=== PATIENT | male | born 1935 | race Caucasian/White ===

== ENCOUNTER 2016-12-24 09:09 | Emergency (ER) | payer MEDICARE ==
[2016-12-24] MEDS ORDERED: cefTRIAXone VIAL(*) 1,000 MG VIAL IVPB ONE (10:05)
[2016-12-24 11:13] VITALS: BP 113/58
--- NOTE | 2016-12-24 11:37 | UC ---
Lower Extremity/Ankle HPI - HPI Summary HPI Summary: right foot swelling and redness for about 7 days. no fever or chills. He denies known heart disease. He has been compliant with dm meds and states sugars are generally in the 130 range. no prior wound or skin infections. no known hx of MRSA. - History of Current Complaint Chief Complaint: UCLowerExtremity Stated Complaint: RT FOOT COMPLAINT Time Seen by Provider: 12/24/16 09:58 Hx Obtained From: Patient Onset/Duration: Gradual Onset Severity Initially: Moderate Severity Currently: Moderate Aggravating Factor(s): Standing, Ambulation Alleviating Factor(s): Rest Able to Bear Weight: Yes - Allergies/Home Medications Allergies/Adverse Reactions: Allergies Allergy/AdvReac Type Severity Reaction Status Date / Time No Known Allergies Allergy Verified 12/24/16 09:19 PMH/Surg Hx/FS Hx/Imm Hx Endocrine History Of: Reports: Diabetes - type 2 Cardiovascular History Of: Reports: Hypertension - Surgical History Surgical History: Yes Surgery Procedure, Year, and Place: lumbar back surgery ~2005 - Family History Known Family History: Positive: None, Unknown - Social History Occupation: Employed Part-time Alcohol Use: None Substance Use Type: None Smoking Status (MU): Never Smoked Tobacco - Immunization History Most Recent Influenza Vaccination: no Review of Systems All Other Systems Reviewed And Are Negative: Yes Physical Exam Triage Information Reviewed: Yes Appearance: Well-Appearing, No Pain Distress, Well-Nourished Vital Signs: Initial Vital Signs Temp 98 F 12/24/16 09:13 Pulse 92 12/24/16 09:13 Resp 18 12/24/16 09:13 BP 110/63 12/24/16 09:13 Pulse Ox 98 12/24/16 09:13 Vital Signs Reviewed: Yes Eyes: Positive: Conjunctiva Clear. Negative: Conjunctiva Inflamed ENT: Positive: Normal ENT inspection, Hearing grossly normal, Pharynx normal. Negative: Pharyngeal erythema, Nasal congestion, Nasal drainage, Tonsillar swelling, Tonsillar exudate Neck exam: Normal Neck: Positive: Supple, Nontender, No Lymphadenopathy Respiratory Exam: Normal Respiratory: Positive: Chest non-tender, Lungs clear, Normal breath sounds, No respiratory distress, No accessory muscle use. Negative: Respiratory distress, Decreased breath sounds, Accessory muscle use, Crackles, Rhonchi, Stridor Cardiovascular: Positive: No Murmur, Other: - irregular. Abdomen Description: Positive: Nontender, No Organomegaly, Soft Musculoskeletal Exam: Normal Musculoskeletal: Positive: Strength Intact, ROM Intact, Edema @ - right foot and ankle swelling and redness. calf is soft and non tender. no venous engourement. no abscess or fluctuance. THere is some mild drainage around the right great toe nail. Psychological Exam: Normal Lower Extremity Course/Dx - Course Course Of Treatment: right foot infection. LIkley source is right toe nail and great toe. no clinical signs of abcess. No systemic signs of infection. he is in afib. I have discussed case with Dr. Moran who states that this has been long ongoing and he has refused workup. She is also kind enough to agree to see patient Thursday morning for re check. He also agrees to go to the ED for any signs of worsening in the meantime such as fever or weakness. Pt has been told that this infection if not followed closely and if it gets worse may lead to loss of life or limb. He agrees wholeheartedly with the plan. He is alert and oriented. - Differential Dx/Diagnosis Differential Diagnosis/HQI/PQRI: Arthritis, Burn, Burn Localized, Bursitis, Cellulitis, Compartment Syndrome, Contusion, Dislocation, Foreign Body, Fracture (Closed), Fracture (Open), Gout, Infection, Osteomyelitis, Puncture Wound, Septic Arthritis, Subungual Hematoma, Sprain, Strain Provider Diagnoses: right foot infection/cellulitis. chronic afib. Discharge - Discharge Plan Condition: Fair Disposition: HOME Prescriptions: Amoxicillin/Clavulanate TAB* [Augmentin TAB 875*] 875 mg PO BID #20 tab Patient Education Materials: Cellulitis (ED) Referrals: Alysha Ryan MD [Primary Care Provider] - 2 Days Additional Instructions: return to ED for any worsening as we discussed. Dr. Moran has agreed to see you Thursday morning at 745am.
[2016-12-24 15:38] LABS: Hematocrit 38 % (42-52); Hemoglobin 12.7 g/dl (14.0-18.0); Mean Corpuscular HGB Conc 33 g/dl (31-36); Mean Corpuscular Hemoglobin 31 pg (27-31); Mean Corpuscular Volume 92 fL (80-94); Mean Platelet Volume 10 um3 (7.4-10.4); Red Blood Count 4.15 10^6/ul (4.0-5.4); Red Cell Distribution Width 14 % (10.5-15); White Blood Count 14.6 10^3/ul (3.5-10.8)
[2016-12-24 15:50] LABS: Albumin 3.6 g/dL (3.2-5.2); Calcium 9.3 mg/dL (8.6-10.3); EGFR African American 51.6 (>60); EGFR Non-African American 40.1 (>60); Potassium 3.8 mmol/L (3.5-5.0); Total Bilirubin 0.7 mg/dL (0.2-1.0); Total Protein 6.6 g/dL (6.4-8.9)
== END 2016-12-24 11:54 | disposition home or self-care (01) ==
LOC: UCCORT 09:09
DX: L03.115 Cellulitis of right lower limb (principal); I48.91 Unspecified atrial fibrillation; E11.9 Type 2 diabetes mellitus without complications; I10 Essential (primary) hypertension
CPT/HCPCS: 36415; 80053; 85025; 87040; 93005; 96365; 99212; G0463; J0696

== ENCOUNTER 2017-01-18 11:28 | Emergency (ER) | payer MEDICARE ==
[2017-01-18 11:48] VITALS: BP 113/52
--- NOTE | 2017-01-18 12:38 | UC ---
Cardiac HPI - HPI Summary HPI Summary: Pt presents with his son. Pt is an 81 yo male with a past medical hx significant for DM, HTN. 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 Per son, pt had an episode of a fib after surgery. Pt was discharge 1 week ago with visiting nurse. Pt states 3 days ago had right sided and epigastric pain. Pt denies nausea. Pt states has had not symptoms or recurrent pain. Pt denies shortness of breath. Does report fatigue and decreased appetite. No fevers, chills, rash. No carbajal/ vision changes. no dysuria, hematuria. No cough. Pt report has previously had neg stress test but can not tell me when was last - son states thinks < 1 year. today, visiting nurse evaluated pt and reported sats 90% - pt recommended to come for eval. Pt without complaints at time of my eval - History of Current Complaint Chief Complaint: UCRespiratory Stated Complaint: PAIN IN RIGHT LUNG Time Seen by Provider: 01/18/17 12:03 Hx Obtained From: Patient Onset/Duration: Gradual Onset Initial Severity: Mild Current Severity: None Chest Pain Location: Discrete at: - epgistric, right chest Character: Dull/Aching Aggravating: Nothing Alleviating: Nothing Associated Signs & Symptoms: Negative: Anxiety, Headaches, Numbness, Weakness, Dizziness, SOB, Syncope, Fever, Diaphoresis, Palpitations, Cough, Hemoptysis, Back Pain - Allergy/Home Medications Allergies/Adverse Reactions: Allergies Allergy/AdvReac Type Severity Reaction Status Date / Time No Known Allergies Allergy Verified 01/18/17 11:40 PMH/Surg Hx/FS Hx/Imm Hx Previously Healthy: No Endocrine History Of: Reports: Diabetes - type 2 Cardiovascular History Of: Reports: Hypertension Respiratory History Of: Denies: COPD GI/ History Of: Denies: Gastroesophageal Reflux Neurological History Of: Denies: TIA Psychological History Of: Denies: Anxiety - Surgical History Surgical History: Yes Surgery Procedure, Year, and Place: lumbar back surgery ~2005. toe amputation- 12/2016 - Family History Known Family History: Positive: None, Unknown - Social History Occupation: Retired Lives: With Family Alcohol Use: None Substance Use Type: None Smoking Status (MU): Never Smoked Tobacco Have You Smoked in the Last Year: No - Immunization History Most Recent Influenza Vaccination: no Review of Systems Constitutional: Negative Skin: Negative Eyes: Negative ENT: Negative Respiratory: Negative Cardiovascular: Chest Pain - 3 days ago - no current pain Gastrointestinal: Negative Genitourinary: Negative Motor: Negative Neurovascular: Negative Musculoskeletal: Negative Neurological: Negative Psychological: Negative All Other Systems Reviewed And Are Negative: Yes Physical Exam Triage Information Reviewed: Yes Completion Of Physical Exam Limited Due To: Altered Mental Status Appearance: Well-Appearing, No Pain Distress, Well-Nourished Vital Signs: Initial Vital Signs Temp 98.4 F 01/18/17 11:42 Pulse 112 01/18/17 11:42 Resp 24 01/18/17 11:42 BP 113/52 01/18/17 11:42 Pulse Ox 98 01/18/17 11:42 Vital Signs Reviewed: Yes Eye Exam: Normal Eyes: Positive: Conjunctiva Clear ENT Exam: Normal ENT: Positive: Hearing grossly normal - hearing devices Neck exam: Normal Neck: Positive: Supple, Nontender, No Lymphadenopathy Respiratory Exam: Normal - Speaking full easy sentences decrease BS bases b/l No retractions No w/r No accessory muscles Respiratory: Positive: No respiratory distress. Negative: Normal breath sounds Cardiovascular: Negative: RRR - irregular, no m/r trace edema b/l LE Abdominal Exam: Normal Abdomen Description: Positive: Nontender, No Organomegaly, Soft Bowel Sounds: Positive: Present Musculoskeletal Exam: Normal Neurological Exam: Normal Neurological: Positive: Alert Psychological Exam: Normal Skin: Positive: Other - right foot wound dressed - did not remove Diagnostics - EKG Cardiac Rate: Other Rate - a fib, 100, PVC no acute ST, T wave changes - Assessment/Plan Course Of Treatment: Pt 2 weeks post -op. Pt had CP 3 days ago. Pt reported to have room air sat 90 % at home today. Pt appears tired, but in no distress today. I had long convesation with pt and son regarding concerns related to recent surgery and episode of cp. Pt with cardiac risk factors (htn, dm) - no known CAD. Pt is in A fib today with PVCs. Son states had a fib post op but resolved. I advised pt to go to ED at [facility] - son and pt refused stating want to go to [place]. I advised pt go by EMS - son and pt refused -states son will drive. d/w pt concern for CAD, PE, CHF risk of dysrthmia, resp distress, cardiac - accepting this risk. Encourage call 911 if change mind. Pt signed ambulance and AMA resfusal. I spoke with RN at transfer center [facility] - aware pt coming by POV - Clinical Impression Provider Diagnoses: episode of chest pain - Physician Notifications Instructed by Provider To: Transfer - [facility] - private vehicle although advised and EMS AMA transfer forms signed Discharge - Discharge Plan Condition: Fair Disposition: OTHER Discharge Disposition Comment: episode of chest pain, a fib Patient Education Materials: Chest Pain (ED) Referrals: Alysha Ryan MD [Primary Care Provider] - Additional Instructions: You must go IMMEDIATELY to an emergency department for further testing and evaluation. It is recommended you go to the nearest emergency department If you develop any symptoms (shortness of breath, chest pain, light headed) it is recommended you fur puller and call 911 You have declined transfer by an ambulance today Call 911 with ANY questions or concerns
== END 2017-01-18 12:40 | disposition left against medical advice (07) ==
LOC: UCCORT 11:28
DX: R07.89 Other chest pain (principal); R10.13 Epigastric pain; E11.9 Type 2 diabetes mellitus without complications; I48.91 Unspecified atrial fibrillation; I10 Essential (primary) hypertension; Z89.421 Acquired absence of other right toe(s)
CPT/HCPCS: 93005; 99212; G0463

== ENCOUNTER 2017-03-02 14:04 | Emergency (ER) | payer MEDICARE ==
--- NOTE | 2017-03-02 14:09 | UC ---
Back Pain HPI - HPI Summary HPI Summary: 82 YEAR OLD MALE WITH BACK PAIN. - History of Current Complaint Stated Complaint: BACK PAIN Time Seen by Provider: 03/02/17 14:07 Onset/Duration: Gradual Onset, Lasting Days - Allergies/Home Medications Allergies/Adverse Reactions: Allergies Allergy/AdvReac Type Severity Reaction Status Date / Time No Known Allergies Allergy Verified 03/02/17 14:31 Home Medications: Home Medications Apixaban* [Eliquis*] 5 mg PO BID 03/02/17 [History Confirmed 03/02/17] Cholecalciferol [D 1000] 1,000 unit PO DAILY 03/02/17 [History Confirmed ] PMH/Surg Hx/FS Hx/Imm Hx - Surgical History Surgical History: Yes Surgery Procedure, Year, and Place: lumbar back surgery ~2005. toe amputation- 12/2016 - Family History Known Family History: Positive: None, Unknown - Social History Alcohol Use: None Substance Use Type: None Smoking Status (MU): Never Smoked Tobacco Have You Smoked in the Last Year: No - Immunization History Most Recent Influenza Vaccination: no Review of Systems Constitutional: Negative Skin: Negative Eyes: Negative ENT: Negative Respiratory: Negative Cardiovascular: Negative Gastrointestinal: Negative Genitourinary: Negative Motor: Negative Neurovascular: Negative Musculoskeletal: Myalgia, Other: - LUMBAR BACK PAIN/SPASM BILATERAL SI JOINT PAIN Neurological: Negative Psychological: Negative All Other Systems Reviewed And Are Negative: Yes Physical Exam Triage Information Reviewed: Yes Eye Exam: Normal ENT Exam: Normal Dental Exam: Normal Neck exam: Normal Neck: Positive: 1 Respiratory Exam: Normal Cardiovascular Exam: Normal Abdominal Exam: Normal Musculoskeletal: Positive: Strength Limited @, ROM Limited @, Other: - LUMBAR PARASPINAL SPASM/BACK PAIN Neurological Exam: Normal Psychological Exam: Normal Skin Exam: Normal Back Pain Course/Dx - Differential Dx/Diagnosis Provider Diagnoses: LUMBAR PARASPINAL PAIN/SPASM Discharge - Discharge Plan Condition: Stable Disposition: HOME Prescriptions: Cyclobenzaprine TAB* [Flexeril TAB*] 5 mg PO BID PRN #15 tab PRN Reason: Spasms Methylprednisolone [Medrol Dosepak 4 MG*] 4 mg PO .SEE BRUCE INSTRUCTION #1 packet Patient Education Materials: Sciatica (ED) Referrals: Alysha Ryan MD [Primary Care Provider] - If Needed
[2017-03-02 14:42] VITALS: BP 120/67
--- NOTE | 2017-03-02 15:12 | UC ---
UC General HPI - HPI Summary HPI Summary: 82 YEAR OLD MALE WITH BACK PAIN. - History of Current Complaint Chief Complaint: UCBackPain Stated Complaint: BACK PAIN Time Seen by Provider: 03/02/17 14:07 Pain Intensity: 8 - Allergy/Home Medications Allergies/Adverse Reactions: Allergies Allergy/AdvReac Type Severity Reaction Status Date / Time No Known Allergies Allergy Verified 03/02/17 14:31 Home Medications: Home Medications Apixaban* [Eliquis*] 5 mg PO BID 03/02/17 [History Confirmed 03/02/17] Cholecalciferol [D 1000] 1,000 unit PO DAILY 03/02/17 [History Confirmed ] PMH/Surg Hx/FS Hx/Imm Hx - Surgical History Surgical History: Yes Surgery Procedure, Year, and Place: lumbar back surgery ~2005. toe amputation- 12/2016 - Family History Known Family History: Positive: None, Unknown - Social History Alcohol Use: None Substance Use Type: None Smoking Status (MU): Never Smoked Tobacco Have You Smoked in the Last Year: No - Immunization History Most Recent Influenza Vaccination: no Physical Exam Triage Information Reviewed: Yes Vital Signs: Initial Vital Signs Temp 98.3 F 03/02/17 14:36 Pulse 69 03/02/17 14:36 Resp 18 03/02/17 14:36 BP 120/67 03/02/17 14:36 Pulse Ox 100 03/02/17 14:36 Discharge - Discharge Plan Condition: Stable Disposition: HOME Prescriptions: Cyclobenzaprine TAB* [Flexeril TAB*] 5 mg PO BID PRN #15 tab PRN Reason: Spasms Methylprednisolone [Medrol Dosepak 4 MG*] 4 mg PO .SEE BRUCE INSTRUCTION #1 packet Patient Education Materials: Sciatica (ED) Referrals: Alysha Ryan MD [Primary Care Provider] - If Needed
--- NOTE | 2017-03-02 15:14 | UC ---
Progress - Progress Note Progress Note: catrachita not covered I sent in an ERXx for Dr Julio for flexeril
== END 2017-03-02 14:52 | disposition home or self-care (01) ==
LOC: UCCORT 14:04
DX: M54.5 Low back pain (principal); M62.830 Muscle spasm of back
CPT/HCPCS: 99212; G0463

== ENCOUNTER 2017-03-21 10:19 | Emergency (ER) | payer MEDICARE ==
[2017-03-21 10:29] VITALS: BP 147/66
--- NOTE | 2017-03-21 10:57 | UC ---
Back Pain HPI - HPI Summary HPI Summary: PT HAS HAD LOW BACK PAIN FOR OVER A MONTH. NO INJURY. WAS SEEN HERE 03/02/17 AND TREATED WITH FLEXERIL AND MEDROL DOSE BRUCE. NO IMPROVEMENT. NO NEW NUMBNESS, TINGLING OR SADDLE ANESTHESIA. PAIN WITH STANDING AND WALKING BUT NONE WHEN SEATED. HAD BACK SURGERY OVER 20 YEARS AGO. - History of Current Complaint Chief Complaint: UCBackPain Stated Complaint: BACK PAIN Time Seen by Provider: 03/21/17 10:48 Hx Obtained From: Patient, Family/Milking Machine Operator - FRIEND Onset/Duration: Gradual Onset, Lasting Weeks, Still Present Timing: Intermittent - WHEN WALKING Severity Initially: Moderate Severity Currently: Moderate Pain Intensity: 7 Pain Scale Used: 0-10 Numeric Back Pain: Is Discrete @ - LOW BACK Character: Sharp Aggravating: Movement, Walking Alleviating: Rest, Position Associated Signs And Symptoms: Positive: Pain with Weight Bearing - Allergies/Home Medications Allergies/Adverse Reactions: Allergies Allergy/AdvReac Type Severity Reaction Status Date / Time No Known Allergies Allergy Verified 03/21/17 10:29 PMH/Surg Hx/FS Hx/Imm Hx - Additional Past Medical History Additional PMH: DVT Endocrine History: Diabetes Cardiovascular History: Hypertension - Surgical History Surgical History: Yes Surgery Procedure, Year, and Place: lumbar back surgery ~2005. toe amputation- 12/2016 - Family History Known Family History: Positive: Diabetes - Social History Alcohol Use: None Substance Use Type: None Smoking Status (MU): Never Smoked Tobacco Have You Smoked in the Last Year: No - Immunization History Most Recent Influenza Vaccination: no Review of Systems Constitutional: Negative Skin: Negative Respiratory: Negative Cardiovascular: Negative Gastrointestinal: Negative Genitourinary: Negative Musculoskeletal: Decreased ROM, Myalgia All Other Systems Reviewed And Are Negative: Yes Physical Exam Triage Information Reviewed: Yes Appearance: Well-Appearing, No Pain Distress, Well-Nourished Vital Signs: Initial Vital Signs Temp 97.2 F 03/21/17 10:23 Pulse 63 03/21/17 10:23 Resp 14 03/21/17 10:23 BP 147/66 03/21/17 10:23 Pulse Ox 100 03/21/17 10:23 Vital Signs Reviewed: Yes Eyes: Positive: Conjunctiva Clear ENT: Positive: Hearing grossly normal Neck: Positive: Supple Respiratory: Positive: No respiratory distress, No accessory muscle use Cardiovascular: Positive: Pulses Normal Abdomen Description: Positive: Soft Musculoskeletal: Positive: No Edema, ROM Limited @ - BACK Neurological: Positive: Alert Psychological: Positive: Age Appropriate Behavior Skin: Negative: rashes Diagnostics - Radiology LUMBARSACRAL XRAYS Xray Interpretation: Positive (See Comments) - POSTSURGICAL CHANGES ( LAMINECTOMY L4-L5) AND SEVERE DEGENERATIVE DISC DISEASE. 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 VICODIN MAY HELP WITH YOUR DISCOMFORT BUT CAN CAUSE DROWSINESS AND CONSTIPATION AND CAN INCREASE YOUR RISK OF FALLING DOWN SO USE WITH CAUTION. CALL THE SPINE CENTER ON THURSDAY TO SCHEDULE AN APPT FOR FOLLOW-UP. GO TO THE ER WITHOUT FAIL IF YOU DEVELOP INTOLERABLE PAIN, LOSS OF BOWEL/ BLADDER CONTROL, NUMBNESS IN THE PELVIC REGION OR ANY OTHER CONCERNING SYMPTOMS. [facility] [address] [place], [place] [id number]
--- NOTE | 2017-03-21 11:42 | RAD ---
INDICATION: Low back pain. COMPARISON: Comparison is made with a prior study from August 31, 2015. TECHNIQUE: 5 views of the lumbar spine were obtained including lateral, oblique, AP and a coned-down lateral view of the lumbar sacral junction. FINDINGS: The patient appears to be status post laminectomy at the L4 and L5 levels. There is mild grade 1 retrolisthesis of L2 relative to L3 and L3 relative to L4. No fracture is appreciated. There is severe disc space narrowing and moderate endplate hypertrophic changes at the L2-L3, L3-L4 and L4-L5 levels. IMPRESSION: POSTSURGICAL CHANGES AND SEVERE DEGENERATIVE DISC DISEASE.
== END 2017-03-21 12:12 | disposition home or self-care (01) ==
LOC: UCCORT 10:19
DX: M51.36 Other intervertebral disc degeneration, lumbar region (principal); E11.9 Type 2 diabetes mellitus without complications; I10 Essential (primary) hypertension; Z86.718 Personal history of other venous thrombosis and embolism
CPT/HCPCS: 72110; 99212; G0463

== ENCOUNTER 2017-03-26 18:18 | Emergency (ER) | payer MEDICARE ==
[2017-03-26 18:25] VITALS: BP 183/92
== END 2017-03-26 19:23 | disposition left against medical advice (07) ==
LOC: ED 18:18
DX: M54.9 Dorsalgia, unspecified (principal); Z53.21 Procedure and treatment not carried out due to patient leaving prior to being seen by health care provider